=== PATIENT | female | born 2000 | race Two or more races ===

== ENCOUNTER 2019-01-14 13:36 | Emergency (ER) | payer OTHER ==
[~2019-01-14] VITALS: Ht 165.1 cm; Wt 96.0 kg
[2019-01-14] MEDS ORDERED: SODIUM CHLORIDE FLUSH 10ML SYR IVF ONE ×2 (14:00→16:30)
--- NOTE | 2019-01-14 15:57 | NUR ---
SALES SECRETARY: PT TO ROOM FROM [facility]
--- NOTE | 2019-01-14 16:13 | NUR ---
PT TO ED WITH MIGRAINE +LIGHT SENSITIVITY, BLURRED VISION. NO OTHER MEDICAL HX. PT ON MONITOR WITH FRIEND AT BEDSIDE. CALL LIGHT WITHIN REACH
[2019-01-14] MEDS ORDERED: KETOROLAC 30 MG/1 ML IVPush ONE (16:30)
[2019-01-14] MEDS ORDERED: METOCLOPRAMIDE 5 MG/ML, 2ML IVPush ONE (16:30)
[2019-01-14] MEDS ORDERED: DEXAMETHASONE 4 MG/ML, 1ML IVPush ONE (16:30)
[2019-01-14] MEDS ORDERED: DIPHENHYDRAMINE 50 MG/ML, 1ML IVPush ONE (16:30)
[2019-01-14] MEDS ORDERED: KETOROLAC 30 MG/1 ML ONE (16:35)
[2019-01-14] MEDS ORDERED: METOCLOPRAMIDE 5 MG/ML, 2ML ONE (16:35)
[2019-01-14] MEDS ORDERED: DIPHENHYDRAMINE 50 MG/ML, 1ML ONE (16:35)
[2019-01-14] MEDS ORDERED: DEXAMETHASONE 4 MG/ML, 5ML ONE (16:36)
[2019-01-14 16:42] LABS: MICROSCOPIC AUTO
[2019-01-14 16:47] LABS: CULTURE INDICATED? NO
[2019-01-14 17:10] VITALS: BP 138/90
--- NOTE | 2019-01-14 17:23 | NUR ---
PT STATES PAIN 1/10 AFTER MEDICATION, [facility]
--- NOTE | 2019-01-14 18:21 | NUR ---
TASK RN: Dischare instructions discussed with patient, questions answered, verbalizes understanding. Patient ambulates with steady gait to discharge desk in no acute distress.
== END 2019-01-14 18:25 | disposition home or self-care (01) ==
LOC: ED 16:34
DX: G43.711 Chronic migraine without aura, intractable, with status migrainosus (principal)
CPT/HCPCS: 81001; 81025; 96374; 96375; 99283; J1100; J1200; J1885; J2765